=== PATIENT | female | born 1995 | race Caucasian/White ===

== ENCOUNTER 2020-04-28 08:56 | Outpatient (CLI) | payer SELFPAY ==
--- NOTE | 2020-04-28 09:09 | XR_ITS ---
WS: [id number] PROCEDURE: XR chest 2V* [id number] CLINICAL INFORMATION: UNSPECIFIED ASTHMA, UNCOMPLICATED COMPARISON: None. FINDINGS: Heart: Normal cardiac silhouette. Lungs: Lungs are clear. No consolidation or pleural fluid. No acute pulmonary infiltrates. Bones: Normal visualized bony structures. XR/XR chest 2V* [id number] IMPRESSION: Normal chest
== END 2020-04-28 08:57 | disposition home or self-care (01) ==
LOC: RADWPI 08:59
PROVIDERS: PCP Family Medicine; Visit Provider Family Medicine
DX: J45.909 Unspecified asthma, uncomplicated (principal)
CPT/HCPCS: 71046

== ENCOUNTER → 2021-01-26 14:31 | Outpatient (BNVA) | payer OTHER, SELFPAY | PROVIDERS: PCP Family Medicine; Visit Provider Nurse Practitioner Family | DX: Z20.822 Contact with and (suspected) exposure to COVID-19 (principal); J06.9 Acute upper respiratory infection, unspecified; Z20.828 Contact with and (suspected) exposure to other viral communicable diseases | CPT/HCPCS: 87635 ==

== ENCOUNTER 2022-01-27 09:38 | Emergency (ER) | payer MEDICAID, SELFPAY ==
[2022-01-27 09:46] VITALS: PULSE 97; RESP 16; TEMP 36.6; O2SAT 99
--- NOTE | 2022-01-27 09:54 | W.ED.BACK ---
HPI - Back Pain/Injury General: Chief Complaint: Back Pain/Injury Stated Complaint: Back pain Time Seen by Provider: 01/27/22 09:47 Source: patient Mode of arrival: ambulatory Limitations: no limitations History of Present Illness: 26-year-old female presents to the ER today for thoracic back pain x3 days. Patient reports she woke up with this about 3 days ago and it has continued to worsen. Patient reports it is from the lower cervical spine to the mid thoracic, mid back area. Patient reports there is a numbness and tingling with this at times and an intermittent spasming pain. Patient reports she is taking Tylenol and Motrin and using a lidocaine patch which does seem to help with the pain however it is still present and is soon as the medication wears off it is very painful. Patient denies any known injury. Denies doing anything differently earlier in the week to cause this. Denies any prior back injuries. Review of Systems General: Reports: 10 or more systems reviewed and unremarkable except in HPI and below Physical Exam Const: COMMON NORMALS: average body habitus, patient oriented x3, no limitations, healthy appearing, alert and well nourished HENMT: COMMON NORMALS: normocephalic and atraumatic HEAD & SCALP: normocephalic and atraumatic Eye: COMMON NORMALS: conjunctivae normal CONJUNCTIVA: Yes conjunctivae normal Neck/C-Spine: CERVICAL SPINE: Yes cervical ROM normal, Yes normal cervical lordosis, No Cervical spine tenderness and No Paracervical muscle tenderness Resp: COMMON NORMALS: normal respiratory effort and No retractions EFFORT & INSPECTION: Yes able to speak in complete sentences Cardio: COMMON NORMALS: regular rate and regular rhythm RATE: regular rate RHYTHM: regular rhythm GI: COMMON NORMALS: Normal to inspection, nondistended, normoactive bowel sounds present, Soft to palpation and non-tender PALPATION: Yes Soft to palpation Back/Pelvis: OTHER: Patient has tenderness to palpation along the spinous processes and paraspinal muscles from the T1 to T8 vertebrae. Patient appears to be stiff with range of motion however is able to have a normal range of motion when she tries. No swelling noted. No numbness or tingling of the upper extremities. Extremity: COMMON NORMALS: normal to inspection and full ROM Neuro: COMMON NORMALS: patient oriented x3 SENSORIUM/ORIENTATION: Yes alert Psych: COMMON NORMALS: mental status grossly normal, Normal thought process present, cooperative, normal affect and speech normal SPEECH: Yes normal speech THOUGHT PROCESS: Normal thought process present Skin: COMMON NORMALS: no rashes or lesions noted GENERAL SKIN EXAM: no rashes or lesions noted Course ED course: 26-year-old female presents to the ER today for mid back pain x3 days. Patient reports this started suddenly and she has tried to treat it conservatively with ibuprofen however reports pain is continuing to worsen. Patient reports stiffness. She denies any known injury. She reports there is some numbness and tingling along the spine however nothing noted in the fingertips. We will get an x-ray at this time. There is no known injury and a CT is not necessary today. We will go ahead and give patient Toradol and Norflex for pain in the ER. Reevaluation(s): Reevaluation #1: Patient reports significant improvement with ketorolac and Norflex injections. Patient rates current pain at a 4 or less Time: 10:50 Vital Signs: Vital signs: Vital Signs Temperature 97.8 F 01/27/22 11:02 Pulse Rate 81 01/27/22 11:02 Respiratory Rate 16 01/27/22 11:02 Blood Pressure 110/64 01/27/22 11:02 Pulse Oximetry 99 01/27/22 11:02 Oxygen Delivery Me thod 01/27/22 11:01 MDM - Back Pain/Injury Medical Decision Making 26-year-old female presents to the ER today for mid back pain x3 days. Patient reports this started suddenly and she has tried to treat it conservatively with ibuprofen however reports pain is continuing to worsen. Patient reports stiffness. She denies any known injury. She reports there is some numbness and tingling along the spine however nothing noted in the fingertips. We will get an x-ray at this time. There is no known injury and a CT is not necessary today. We will go ahead and give patient Toradol and Norflex for pain in the ER. X-ray done in the ER is normal at this time. Patient does report significant improvement with the Norflex and Toradol. Patient reports pain is a 4 out of 10 at this time. We discussed we will send patient home with Toradol and muscle relaxer for the next several days. If this does not continue to improve or if it is not better in 7 to 10 days, patient should follow-up with her PCP discuss further imaging and other options. I recommend rest and avoid any lifting greater than 10 pounds. Return to the ER with new or worsening symptoms. Patient verbalized understanding and was in agreement with the treatment plan. Labs Radiology Impressions Thoracic Spine X-Ray 01/27/22 10:07 IMPRESSION: Negative thoracic spine. Critical Care Time Critical Care Time: Critical Care Time: No Discharge Plan Discharge Patient Disposition: Home Clinical Impression: Back pain, thoracic Qualifiers: Chronicity: acute Back pain laterality: midline Qualified Code(s): M54.6 - Pain in thoracic spine Condition: Stable Prescriptions: New ketorolac 10 mg tablet 10 mg PO Q8H PRN (Reason: pain) 3 Days Qty: 12 0RF methocarbamol 750 mg tablet 750 mg PO Q8H Qty: 21 0RF No Action citalopram 40 mg tablet 40 mg PO DAILY Discharge Orders: Discharge ED (Routine); Ordered 01/27/22 Ordered By: Soraya Maza Referrals: Celina Felton MD [Primary Care Provider] - Discharge Diet: Usual diet Discharge Activity: Increase activity as tolerated Activity Restrictions/Additional Instructions: Take ketorolac and Robaxin as prescribed. Recommend alternating warm heat and ice. Topical muscle rub recommended but do not use with heat or ice. Okay to continue taking Tylenol as needed. If no improvement in 7 to 10 days follow-up with PCP to discuss further imaging or other treatment options. Return to the ER with new or worsening symptoms. Coding Level of Care Code ED Building [employer] [facility] Exam Comprehensive
[2022-01-27 09:55] VITALS: PULSE 97; RESP 16; TEMP 36.6; O2SAT 99
--- NOTE | 2022-01-27 10:07 | XR_ITS ---
WS: [id number] Exam: XR thoracic spine 3V* [id number] Date/Time of Exam: 01/27/2022 10:08 AM Reason For Exam: mid back pain Findings: In the AP projection, the thoracic spine is straight. In the lateral projection, the thoracic curve is well maintained. The intervertebral disc spaces are intact. No fractures or anomalies of the tho racic spine are noted. XR/XR thoracic spine 3V* [id number] IMPRESSION: Negative thoracic spine.
[2022-01-27] MEDS: ketorolac 30 mg/mL INJ IM (10:13)
[2022-01-27] MEDS: orphenadrine 30 mg/mL Inj 2 mL 60 MG IM (10:15)
[2022-01-27 11:01] VITALS: BP 110/64; PULSE 81; RESP 16; TEMP 36.6; O2SAT 99
[2022-01-27 11:02] VITALS: BP 110/64; PULSE 81; RESP 16; TEMP 36.6; O2SAT 99
== END 2022-01-27 11:02 | disposition home or self-care (01) ==
PROVIDERS: Emergency Provider Physician Assistant; PCP Family Medicine
DX: M54.6 Pain in thoracic spine (principal)
CPT/HCPCS: 72072; 96372; 99284; J1885; J2360